=== PATIENT | male | born 1955 | race Caucasian/White ===

== ENCOUNTER 2021-11-22 20:54 | Observation (INO) ==
[2021-11-22] MEDS ORDERED: SODIUM CHLORIDE 0.9% 1000ML 1,000 ML IV STA (21:41)
--- NOTE | 2021-11-22 21:59 | Emergency Department Note ---
Impression & Plan Leukocytosis, Choledocholithiasis ED Provider Note INFORMANT: Patient ED PROVIDER(S): Ivan Arias MD CHIEF COMPLAINT: Abdominal pain PLAN: Disposition: Admitted Condition: Good Outpatient prescription management: none Referral: None patient presented to the emergency department MEDICAL DECISION MAKING: Because of referral from an outside facility in consultation without any general surgery. The patient was examined and had some tenderness but declined analgesia. He was given IV Mefoxin given the findings on CT as well as his leukocytosis. Labs here revealed a leukocytosis albeit better. His LFTs and lipase were unremarkable. Chemistry panel was negative as well. His twelve- lead ECG did not reveal any significant abnormalities. I did consult with general surgery, Dano Cain PA-C. Patient was evaluated in the ER. He will be admitted under Dr. Islas. Ultrasound imaging did raise some concerns for cholecystitis. Official read pending. Triage Nursing notes reviewed and agree them. Vital Signs: reviewed and remarkable for no significant abnormalities Differential diagnosis: Biliary pathology, appendicitis, infections, diverticulitis, UTI, obstruction, mesenteric ischemia, aortic pathology, inflammatory bowel disease, renal colic, PUD, pancreatitis,hernia, volvulus, constipation, as well as other pathologies. Diagnostics interpreted by me: ECG: Twelve-lead ECG reveals a normal sinus rhythm at 85 bpm. Left axis deviation. No ST elevation or depression. No PACs or PVCs. Cardiac Monitoring: Cardiac monitoring ordered by me: The patient was placed on continuous cardiac monitoring and observed. It revealed a normal sinus rhythm at 66 beats per minute without ectopy or evidence of dysrhythmia. Imaging studies: Ultrasound as above HPI: The patient is a 66 year old male who presents to the Emergency Room with complaints of abdominal pain that was in the epigastrium and below the rib cage. This started yesterday and is persisting. The patient went to [facility] and had a work-up done. There was a large stone found in the gallbladder neck with a white count of 19,000. Troponin negative. LFTs unremarkable. They did not have ultrasound available. No surgical capabilities were available there. They did contact [facility] general surgery who recommended transfer to the ER here. The patient also notes the following associated symptoms, nausea and vomiting. The patient has taken no medication at home forrelieving factors. Current pain is rated as 4/10. Pt denies LOC, headache, fevers, chills, diaphoresis, visual changes, neck pain, chest pain, breathing difficulties, back pain, melena, hematochezia, urinary symptoms, numbness, weakness, lymphadenopathy, rash, or other complaints. ROS: See above HPI for pertinent positives & negatives. A total of 10 systems reviewed and were otherwise negative. PAST MEDICAL HISTORY:See Below , diabetes PAST SURGICAL HISTORY:See Below, FAMILY HISTORY:See Below SOCIAL HISTORY:See Below, daily alcohol HOME MEDICATIONS:See Below ALLERGIES:See Below VITALS:See Below PHYSICAL EXAMINATION: GENERAL: Awake, alert, well-appearing, in no distress HENT: Normocephalic, atraumatic. Oropharynx unremarkable. EYES: Normal conjunctiva. Sclera non-icteric. NECK: Inspection normal. Non-tender. Supple. No nuchal rigidity. FROM. No masses. RESPIRATORY: Clear to auscultation. No wheezes. No rales. Normal respiratory effort. CARDIAC: Normal rate. Normal rhythm. No murmurs. No rubs. Extremities warm and well perfused. Pulses equal. No JVD. GI: Soft, non-distended. Epigastric tenderness to palpation. No rebound or guarding. No masses. RECTAL: Deferred. MUSCULOSKELETAL: Atraumatic. Chest examination reveals no tenderness. The back is symmetrical on inspection without obvious abnormality. There is no CVA tenderness to palpation. No joint edema. LOWER EXTREMITIES: Calves are equal size bilaterally and non-tender. No edema. No discoloration. NEURO: Normal sensorium. No sensory or motor deficits noted. SKIN: No rash or jaundice noted. Ivan Arias MD Past Med/Surg History Social History Smoking Status: Never smoker Preferred Language: Georgian Feels Safe at Home: Yes Allergies Allergies Allergy/AdvReac Type Severity Reaction Status Date / Time No Known Allergies Allergy Unverified 11/22/21 23:04 Home Meds Home Medications Medication Instructions Recorded Confirmed Nutraveiw 1 tab PO DAILY 11/22/21 11/22/21 cholecalciferol (vitamin D3) 25 0 mcg PO Q OTHER DAY 11/22/21 11/22/21 mcg (1,000 unit) capsule (Vitamin D3) magnesium oxide 400 mg PO Q OTHER DAY 11/22/21 11/22/21 metformin 500 mg tablet 250 mg PO BID 11/22/21 11/22/21 omega-3 fatty acids 1,000 mg PO 2XWK 11/22/21 11/22/21 prednisolone acetate 1 % eye 1 drp OPHTHALMIC (EYE) QID 11/22/21 11/22/21 drops,suspension simvastatin 20 mg tablet 20 mg PO HS 11/22/21 11/22/21 vitamin B complex 1 tab PO Q OTHER DAY 11/22/21 11/22/21 Results & Data (ED) Vital Signs Vital Signs - 24 hr 11/22/21 20:57 11/22/21 21:59 11/22/21 22:02 Temperature 37.4 C Temperature Source Temporal Artery Scan Pulse Rate 103 H 84 Pulse Rate [Finger] 90 Respiratory Rate 12 18 18 Respiratory Effort / Characteristics Non-Labored Spontaneous Respiratory Depth Normal Respiratory Pattern Regular Blood Pressure 141/76 H Blood Pressure [Right Arm] 164/86 H Blood Pressure Mean 97 Blood Pressure Mean [Right Arm] 112 Pulse Oximetry 96 95 96 Oxygen Delivery Method Room Air Room Air Room Air Sepsis Recent Fever Within 48 Hours No Sepsis New/Unexplained Change in Mental Status No Sepsis Action Taken by Nursing No Action Required 11/22/21 22:59 11/23/21 02:52 Temperature Temperature Source Pulse Rate Pulse Rate [Finger] 75 66 Respiratory Rate 18 18 Respiratory Effort / Characteristics Respiratory Depth Respiratory Pattern Blood Pressure Blood Pressure [Right Arm] 159/81 H 150/69 H Blood Pressure Mean Blood Pressure Mean [Right Arm] 107 96 Pulse Oximetry 98 98 Oxygen Delivery Method Room Air Room Air Sepsis Recent Fever Within 48 Hours Sepsis New/Unexplained Change in Mental Status Sepsis Action Taken by Nursing Laboratory Data Result diagrams: 11/22/21 22:00 11/22/21 22:00 Lab Results 11/22/21 11/22/21 11/23/21 Range/Units 22:00 22:00 00:45 WBC 13.89 H (4.8-10.8) K/uL RBC 4.69 L (4.7-6.1) M/uL Hgb 15.1 (14.0-18.0) g/dL Hct 43.6 (42-52) % MCV 93.0 (80-100) fL MCH 32.2 (25-34) pg MCHC 34.6 (32-36) g/dL RDW Std Deviation 43.6 (36.4-46.3) fL RDW Coeff of Miguel 12.8 (11.5-14.5) % Plt Count 342 (130-400) K/uL MPV 10.2 (7.4-10.4) fL Immature Gran % (Auto) 0.4 % Neut % (Auto) 78.4 % Lymph % (Auto) 11.4 % [place] % (Auto) 9.6 % Eos % (Auto) 0.1 % Baso % (Auto) 0.1 % Neut # (Auto) 10.87 H (1.4-6.5) K/uL Lymph # (Auto) 1.59 (1.2-3.4) K/uL [place] # (Auto) 1.34 H (0.11-0.59) K/uL Eos # (Auto) 0.01 (0-0.5) K/uL Baso # (Auto) 0.02 (0-0.2) K/uL Immature Gran # (Auto) 0.06 H (0.00-0.02) K/uL Sodium 136 (136-145) mmol/L Potassium 3.7 (3.5-5.1) mmol/L Chloride 100 (98-107) mmol/L Carbon Dioxide 26 (21-32) mmol/L Anion Gap 10 (3-11) BUN 10 (6-23) mg/dl Creatinine 0.67 (0.6-1.4) mg/dl Est Cr Clr Drug Dosing 109.9 ml/min Est GFR ( Amer) 116.9 ml/min Est GFR (Non-Af Amer) 100.8 ml/min BUN/Creatinine Ratio 14.9 (10-20) Glucose 173 H (70-99(Fasting)) mg/dl Calcium 9.4 (8.5-10.1) mg/dl Total Bilirubin 0.8 (0.2-1.0) mg/dl AST 17 (13-39) U/L ALT 15 (7-52) U/L Alkaline Phosphatase 57 (34-104) U/L Total Protein 7.1 (6.0-8.3) gm/dl Albumin 4.2 (3.4-5.0) gm/dl Globulin 2.9 (2.5-4.0) gm/dl Albumin/Globulin Ratio 1.4 (0.9-2) Lipase 21 (11-82) U/L SARS-CoV-2, RNA, NAAT NEGATIVE (NEGATIVE) Administered Medications Sodium Chloride (Nss 1000ml) 1,000 mls @ 125 mls/hr IV .Q8H STA Stop: 11/23/21 05:40 Last Admin: 11/22/21 22:08 Dose: 125 mls/hr Documented by: [id number] Discontinued Medications Cefoxitin Sodium (Mefoxin) 2,000 mg in 60 mls @ 100 mls/hr IV NOW STA Stop: 11/22/21 23:54 Last Infusion: 11/23/21 00:47 Dose: 0 mls/hr Documented by: [id number] Admin: 11/23/21 00:11 Dose: 100 mls/hr Documented by: [id number] Discharge Plan Visit Data Chief Complaint: Referred by Doctor Stated Complaint: refer'd from fabrizio jimenez, gallbladder surgery, ED Provider: Ivan Arias Discharge Problem: Leukocytosis, Choledocholithiasis Forms Stand Alone Forms: My [facility] Prescriptions Prescriptions: No Action metformin 500 mg tablet 250 mg PO BID RF: 0 prednisolone acetate 1 % drops,suspension 1 drp ophthalmic (eye) QID RF: 0 simvastatin 20 mg tablet 20 mg PO HS RF: 0 vitamin B complex Tablet 1 tab PO Q OTHER DAY RF: 0 cholecalciferol (vitamin D3) [Vitamin D3] 25 mcg (1,000 unit) Capsule 0 mcg PO Q OTHER DAY RF: 0 Nutraveiw 1 tab PO DAILY RF: 0 Fish Oil Capsule 1,000 mg PO 2XWK RF: 0 magnesium oxide 400 mg magnesium Tablet 400 mg PO Q OTHER DAY RF: 0 Referrals Referrals: PCP,NO [Physician] -
[2021-11-22 22:17] LABS: Basophils # (auto) 0.02 K/uL (0-0.2); Basophils % (auto) 0.1 %; Eosinophils # (auto) 0.01 K/uL (0-0.5); Eosinophils % (auto) 0.1 %; Hematocrit (blood only) 43.6 % (42-52); Hemoglobin 15.1 g/dL (14.0-18.0); Immature Granulocytes # (auto) 0.06 K/uL (0.00-0.02); Immature Granulocytes % (auto) 0.4 %; Lymphocytes # (auto) 1.59 K/uL (1.2-3.4); Lymphocytes % (auto) 11.4 %; Mean Corpuscular Hemoglobin 32.2 pg (25-34); Mean Corpuscular Hgb Conc 34.6 g/dL (32-36); Mean Platelet Volume 10.2 fL (7.4-10.4); Monocytes # (auto) 1.34 K/uL (0.11-0.59); Monocytes % (auto) 9.6 %; Neutrophils # (auto) 10.87 K/uL (1.4-6.5); Neutrophils % (auto) 78.4 %; Platelet Count 342 K/uL (130-400); RDW Coefficient of Variation 12.8 % (11.5-14.5); RDW Standard Deviation 43.6 fL (36.4-46.3); Red Blood Count 4.69 M/uL (4.7-6.1); White Blood Count 13.89 K/uL (4.8-10.8)
[2021-11-22 22:44] LABS: Albumin Globulin Ratio 1.4 (0.9-2); Albumin Level 4.2 gm/dl (3.4-5.0); BUN Creatinine Ratio 14.9 (10-20); Bilirubin,Total 0.8 mg/dl (0.2-1.0); Calcium 9.4 mg/dl (8.5-10.1); Creatinine Clr Calc Pharmacy 109.9 ml/min; Est GFR (African American) 116.9 ml/min; Est GFR (Non-African American) 100.8 ml/min; Globulin 2.9 gm/dl (2.5-4.0); Potassium 3.7 mmol/L (3.5-5.1); Total Protein 7.1 gm/dl (6.0-8.3)
[2021-11-22] MEDS ORDERED: cefOXitin 2,000 MG/60 ML BAG IV STA (23:19)
--- NOTE | 2021-11-23 00:26 | History & Physical Report ---
Date of Service November 23, 2021 Assessment & Plan (1) Cholelithiasis: Plan: Due to the patient's clinical presentation and imaging we admit him to the hospital and proceed as follows: Analgesia will be provided Antiemetics will be provided We will implement n.p.o. status We will provide hydration IV fluids We will maintain the patient on antibiotics. He is already received Mefoxin in the emergency department We will tenably plan on a cholecystectomy. I discussed with the patient a laparoscopic, possible open cholecystectomy and discussed the risks, benefits, and expected postoperative course. He wishes to proceed. The patient is already had an EKG as noted He has had a chest x-ray at [facility] that did not show any evidence of pneumonia A Covid test has been ordered and will follow for the results of this Additional recommendations be forthcoming based on the formal read of patient's ultrasound here at [facility] as well as his clinical course as it unfolds We will use SCDs for DVT prevention. No chemical means of use due to planned surgery He will be a level 1 full code History of Present Illness Chief Complaint: Abdominal pain Primary Care Provider: Jimmie Nichols This is a 66-year-old male who was in his usual state of health until approximately 1 day ago the patient developed some postprandial pain that was located primarily in his upper abdomen. He notes that the pain was in the epigastric and right upper quadrant and he felt it was merely indigestion. He had associated nausea vomiting but denies any fever shakes or chills. He did not note any radiation of the pain. He did not report any additional modifying factors of his pain. He notes that the pain subsided throughout most of the night which prompted him to seek care at [facility]. Of note, the patient reports never having any prior abdominal surgeries. At [facility] the patient did have a chest x-ray that showed no evidence of pneumonia. He also underwent a CT scan of the abdomen and pelvis that showed cholelithiasis. On this study the gallbladder is noted be mildly distended. There is also an echodensity that appeared to represent a stone in the neck of the gallbladder and a smaller stone in the neck of the fundus of the gallbladder. There was no definite pericholecystic fluid on this study. While at [facility] the patient did have labs as well. Chemistry profile showed sodium was 132 and his potassium was normal. His BUN and creatinine were noted to be normal. There were no elevation noted of patient's bilirubin, transaminases, alkaline phosphatase, or lipase. A CBC did show his white blood cell count was elevated at 19.4. His hemoglobin, hematocrit, and platelet count were all noted to be normal. At [facility] emergency department patient had labs and imaging which independent reviewed. He did have a gallbladder ultrasound that was not formally read by radiology department but it did appear as though the patient did have Elsie lithiasis. Labs including CBC were white blood cell count was noted be 13.8. Hemoglobin, hematocrit, platelet count were all within normal range. Chemistry profile showed sodium, potassium, BUN, and creatinine were all within the normal range. He did not have any elevation of his biliru bin, transaminases, alkaline phosphatase, or lipase. A Covid test was ordered and is noted to be pending. He did have an EKG that showed normal sinus rhythm without changes indicative of acute ischemia. I did question the patient on his activities of daily living and he says he leads a very active lifestyle. He oftentimes performs strenuous yard work and with these activities he does not get any chest pain or shortness of breath. He does report history of smoking for approximately 20 years up to 1 pack cigarettes per day but quit this habit in 1996. He said that his father did suffer a heart attack in his 70s. Concerning additional medical problems the patient says that he has prediabetes and denies any other significant medical problems. Notes that his only surgery was a previous eye surgery. At the time of my interview the patient was resting comfortably in bed in no distress Allergies Allergy/AdvReac Type Severity Reaction Status Date / Time No Known Allergies Allergy Unverified 11/22/21 23:04 Home Medications Medication Instructions Recorded Confirmed Type Nutraveiw 1 tab PO DAILY 11/22/21 11/22/21 History cholecalciferol (vitamin D3) 25 0 mcg PO Q OTHER DAY 11/22/21 11/22/21 History mcg (1,000 unit) capsule (Vitamin D3) magnesium oxide 400 mg PO Q OTHER DAY 11/22/21 11/22/21 History metformin 500 mg tablet 250 mg PO BID 11/22/21 11/22/21 History omega-3 fatty acids 1,000 mg PO 2XWK 11/22/21 11/22/21 History prednisolone acetate 1 % eye 1 drp OPHTHALMIC (EYE) QID 11/22/21 11/22/21 History drops,suspension simvastatin 20 mg tablet 20 mg PO HS 11/22/21 11/22/21 History vitamin B complex 1 tab PO Q OTHER DAY 11/22/21 11/22/21 History Past Med/Surg History Social History Smoking Status: Former smoker Hx Alcohol Use: Yes Alcohol type: beer Hx Substance Use: No Preferred Language: Trinidadian Communication Ability: Effective Commission Sales Associate Required: No Beliefs That Will Affect Care: None Current Living Situation: Spouse Other Information That Helps Us Care for You: No Feels Safe at Home: Yes Safety Concerns: Feels Safe At This Time Assistive Devices: Glasses Review of Systems Constitutional: no fever and no chills Eyes: no diplopia Ear, Nose, Mouth, Throat: no ear pain Respiratory: no cough and no dyspnea Cardiovascular: no chest pain Gastrointestinal: + abdominal pain, + nausea and + vomiting Genitourinary: no dysuria Musculoskeletal: no back pain Integumentary: no rash Neurologic: no localized weakness Physical Exam Constitutional: well developed and well nourished; no acute distress Eyes: + anicteric sclerae; no conjunctival abnormality ENMT: Ears: no hearing impairment Neck: trachea midline Respiratory: normal respiratory effort; no respiratory distress and no labored breathing Cardiovascular: Rate/Rhythm: regular rate and regular rhythm Gastrointestinal (Abdomen): Abdomen is soft, nondistended, there is tenderness noted with palpation in the right upper quadrant. There is no rebound tenderness or guarding Musculoskeletal: No calf tenderness Skin: no rashes Neurologic: moves all extremities Psychiatric: A+Ox3, euthymic affect Results & Data Results & Data ([facility]) Vital Signs (Past 12 Hours) Vital Signs Temp Pulse Pulse Resp BP BP Pulse Ox 11/22/21 22:59 75 18 159/81 H 98 11/22/21 22:02 90 18 164/86 H 96 11/22/21 21:59 84 18 95 11/22/21 20:57 37.4 C 103 H 12 141/76 H 96 Supervising Physician Co-Signing Physician Notes I personally saw and evaluated the patient with Rodriguez Cain PA-C and agree with the assessment and plan. 66-year-old male with acute cholecystitis Ultrasound images and results personally viewed by me Admit to surgery Start IV antibiotics, keep n.p.o. IV fluids Pain control as needed We will plan on taking to the operating room tomorrow for laparoscopic cholecystectomy, possible open, possible intraoperative cholangiogram PG Care Time/CCT Total # of Minutes Spent Total Time Spent with Patient: Total time spent is greater than 50% in coordination of care (as documented) at patient's floor/unit and/or counseling patient: Coding Level of Care Code 37414 Initial Inpt Care Lvl 3 Diagnoses Cholelithiasis K80.20
[2021-11-23] MEDS ORDERED: ACETAMINOPHEN 1,000 MG/100 ML VIAL IV PRN (03:43)
[2021-11-23] MEDS ORDERED: MoRPHine SULFATE 4 MG/ML 1 ML CARP\\VIAL IV PRN (03:43)
[2021-11-23] MEDS ORDERED: ONDANSETRON INJ 2 MG/ML 2 ML VIAL IV PRN ×2 (03:43→10:03)
[2021-11-23] MEDS: LACTATED RINGER'S 1,000 ML IV SCH ×2 (04:02→17:31)
[2021-11-23] MEDS: cefOXitin 2,000 MG in DEXTROSE 5% 50 ML IV SCH ×2 (05:30→12:56)
[2021-11-23] MEDS: INSULIN HUMAN REGULAR SC SCH ×4 (06:01→21:06)
--- NOTE | 2021-11-23 06:34 | Surgery Progress Note ---
Date of Service November 23, 2021 Assessment & Plan (1) Cholelithiasis: Plan: Patient has been admitted to the hospital, proceeding as follows Continue analgesics Continue antiemetics Continue n.p.o. status Continue IV fluid for hydration while n.p.o. Continue antibiotics. Cefoxitin has been initiated Plans are in place for patient undergo a cholecystectomy later this morning with Dr. Islas Additional recommendations be forthcoming based on his operative findings and clinical course as it unfolds SCDs only for DVT prevention, no chemical means due to planned surgery Patient be a level 1 full code Admission and Anticipated Discharge Date Admission Date: November 23, 2021 Supervising Physician Co-Signing Physician Notes I personally saw and evaluated the patient with Rodriguez Cain PA-C and agree with the assessment and plan. 66-year-old male with acute cholecystitis Continue IV antibiotics Keep n.p.o. Plan on laparoscopic cholecystectomy, possible open, possible intraoperative cholangiogram today Consent was obtained, risks discussed including bleeding, infection, bile leak, ductal injury Subjective Patient is resting comfortably in bed. Since admission he has not had exacerbation of his abdominal pain. He denies any nausea vomiting since admission. He denies any fevers, shakes, chills since admission. Physical Exam Gastrointestinal (Abdomen): At the present time the patient's abdomen is soft, nontender, nondistended Results & Data ([facility]) Vital Signs (Past 12 Hours) Vital Signs Temp Pulse Pulse Resp BP BP Pulse Ox 11/23/21 03:30 36.9 C 64 16 162/70 H 98 11/23/21 02:52 66 18 150/69 H 98 11/22/21 22:59 75 18 159/81 H 98 11/22/21 22:02 90 18 164/86 H 96 11/22/21 21:59 84 18 95 11/22/21 20:57 37.4 C 103 H 12 141/76 H 96 PG Care Time/CCT Total # of Minutes Spent Total Time Spent with Patient: Total time spent is greater than 50% in coordination of care (as documented) at patient's floor/unit and/or counseling patient: Coding Level of Care Code 63030 Subseq Hosp Care Lvl 1 Diagnoses Cholelithiasis K80.20
--- NOTE | 2021-11-23 07:11 | Anesthesiology Consultation ---
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 History Surgery Operation Date: 11/23/21 10:00 Proposed Procedures p Laparoscopic Cholecystectomy - Rex Islas DO Height/Weight Height: 5 ft 9 in Weight: 80.1 kg Allergies Allergy/AdvReac Type Severity Reaction Status Date / Time No Known Allergies Allergy Unverified 11/22/21 23:04 Medications Home Medications Medication Instructions Recorded Confirmed Last Taken Nutraveiw 1 tab PO DAILY 11/22/21 11/22/21 Unknown cholecalciferol (vitamin D3) 25 0 mcg PO Q OTHER DAY 11/22/21 11/22/21 Unknown mcg (1,000 unit) capsule (Vitamin D3) magnesium oxide 400 mg PO Q OTHER DAY 11/22/21 11/22/21 Unknown metformin 500 mg tablet 250 mg PO BID 11/22/21 11/22/21 11/21/21 09:00 omega-3 fatty acids 1,000 mg PO 2XWK 11/22/21 11/22/21 Unknown prednisolone acetate 1 % eye 1 drp OPHTHALMIC (EYE) QID 11/22/21 11/22/21 11/21/21 drops,suspension simvastatin 20 mg tablet 20 mg PO HS 11/22/21 11/22/21 11/19/21 vitamin B complex 1 tab PO Q OTHER DAY 11/22/21 11/22/21 Unknown Active Medications Generic Name Dose Route Start Last Admin Trade Name Freq PRN Reason Stop Dose Admin Lactated Ringer's 1,000 mls @ 75 mls/hr 11/23/21 03:43 11/23/21 04:02 Lr IV 12/23/21 03:42 75 mls/hr .[id number] NIGHAT Administration Cefoxitin Sodium 2,000 mg/ 60 mls @ 100 mls/hr 11/23/21 06:00 11/23/21 06:02 Dextrose IV 12/03/21 05:59 Infused Q6H NIGHAT Infusion Insulin Human Regular 0 units 11/23/21 06:00 11/23/21 06:01 Insulin Human Regular SC 12/23/21 05:59 Not Given Q6H NIGHAT Social History Smoking Status: Former smoker Hx Alcohol Use: Yes Alcohol type: beer alcohol intake frequency: 3 or more drinks per day Hx Substance Use: No Physical Exam Vital Signs Last Vital Signs Temp 98.4 F 11/23/21 03:30 Pulse 64 11/23/21 03:30 Resp 16 11/23/21 03:30 BP 162/70 H 11/23/21 03:30 Pulse Ox 98 11/23/21 03:30 Testing Laboratory Results 11/22/21 22:00 11/22/21 22:00 11/23/21 05:59 POC Glucose 161 H Laboratory Tests 11/23/21 00:45 SARS-CoV-2, RNA, NAAT NEGATIVE Electrocardiogram Date: 11/22/21 Normal sinus rhythm, rate 85 bpm Left axis deviation Abnormal ECG No previous ECGs available
[2021-11-23] MEDS: prednisoLONE acetate 1% OP SUSP 5 ML BTL OP SCH ×4 (07:22→20:38)
[2021-11-23 07:29] LABS: Basophils # (auto) 0.01 K/uL (0-0.2); Basophils % (auto) 0.1 %; Eosinophils # (auto) 0.02 K/uL (0-0.5); Eosinophils % (auto) 0.2 %; Hematocrit (blood only) 40.4 % (42-52); Immature Granulocytes # (auto) 0.02 K/uL (0.00-0.02); Immature Granulocytes % (auto) 0.2 %; Lymphocytes # (auto) 1.82 K/uL (1.2-3.4); Lymphocytes % (auto) 15.8 %; Mean Corpuscular Hemoglobin 32.5 pg (25-34); Mean Corpuscular Hgb Conc 34.7 g/dL (32-36); Mean Corpuscular Volume 93.7 fL (80-100); Mean Platelet Volume 10.3 fL (7.4-10.4); Monocytes # (auto) 1.08 K/uL (0.11-0.59); Monocytes % (auto) 9.4 %; Neutrophils # (auto) 8.55 K/uL (1.4-6.5); Neutrophils % (auto) 74.3 %; Platelet Count 339 K/uL (130-400); RDW Coefficient of Variation 12.7 % (11.5-14.5); RDW Standard Deviation 44.1 fL (36.4-46.3); Red Blood Count 4.31 M/uL (4.7-6.1)
[2021-11-23] MEDS ORDERED: INSULIN HUMAN REGULAR SC SCH (07:30)
[2021-11-23 07:54] LABS: Albumin Globulin Ratio 1.5 (0.9-2); Albumin Level 3.8 gm/dl (3.4-5.0); BUN Creatinine Ratio 11.8 (10-20); Bilirubin,Total 0.9 mg/dl (0.2-1.0); Calcium 8.8 mg/dl (8.5-10.1); Creatinine Clr Calc Pharmacy 96.9 ml/min; Est GFR (Non-African American) 95.7 ml/min; Globulin 2.6 gm/dl (2.5-4.0); Potassium 3.6 mmol/L (3.5-5.1); Total Protein 6.4 gm/dl (6.0-8.3)
[2021-11-23] MEDS ORDERED: DEXAMETHASONE SOD INJ 4 MG/ML VIAL ONE (07:58)
[2021-11-23] MEDS ORDERED: ONDANSETRON INJ 2 MG/ML 2 ML VIAL ONE ×2 (07:58→11:29)
[2021-11-23] MEDS ORDERED: ROCURONIUM BROMIDE 10 MG/ML 5 ML VIAL IV ONE (07:58)
[2021-11-23] MEDS ORDERED: PROPOFOL IV EMULSION 10 MG/ML 20 ML VIAL IV ONE (07:58)
[2021-11-23] MEDS ORDERED: LIDOCAINE 2% 2 ML VIAL/AMP(20MG/ML) INFIL ONE (07:58)
--- NOTE | 2021-11-23 08:38 | Ultrasound Report ---
US gallbladder LIMITED ABDOMEN CLINICAL HISTORY: Stone in neck on outpatient CT. COMPARISON: None. TECHNIQUE: Multiple grayscale and color images of the right upper quadrant of the abdomen. FINDINGS: The study is limited by overlying bowel gas. Pancreas: The imaged portion of the pancreas is within normal limits with no focal mass or peripancre atic fluid collection identified. Liver: The liver is homogeneous in echogenicity There is no evidence for a focal mass. There is no in trahepatic biliary duct dilatation. Gallbladder: The gallbladder is distended with evidence for a stone impacted in the neck of the gallb ladder. There is gallbladder wall thickening measuring 7 mm. Minimal pericholecystic edema is seen. H owever, there was reportedly a negative sonographic Gabriel sign. Common Bile Duct: (CBD): It is normal in size measuring 3 mm. Inferior Vena Cava (IVC): The imaged IVC is patent. Right kidney: There is no evidence for hydronephrosis, calculus or gross renal mass. 2 small cysts ar e present, the largest measuring 2.2 cm. The kidney is normal in size. IMPRESSION: 1. Distended gallbladder with wall thickening and minimal pericholecystic edema. There is a stone imp acted in the neck of the gallbladder. While there was reportedly a negative sonographic Gabriel sign, the findings are suspicious for early acute cholecystitis. ACT 112: Negative or not required by law. Electronically signed by: Guero Ndiaye M.D. 11/23/2021 8:35 AM
[2021-11-23] MEDS ORDERED: BUPIVACAINE/EPINEPHRINE 0.25% 1:200,000 30 ML VIAL ONE (08:47)
[2021-11-23] MEDS ORDERED: ATROPINE SULFATE 0.1 MG/ML 10ML SYR IV PRN (10:03)
[2021-11-23] MEDS ORDERED: ePHEDrine sulfate 50 MG/ML AMP IV PRN (10:03)
[2021-11-23] MEDS ORDERED: fentaNYL citrate 100 MCG/2 ML VIAL IV PRN (10:03)
[2021-11-23] MEDS ORDERED: fentaNYL citrate 100 MCG/2 ML VIAL ONE ×2 (10:09→10:37)
[2021-11-23] MEDS ORDERED: MIDAZOLAM HCL 1 MG/ML 2ML VIAL ONE (10:09)
--- NOTE | 2021-11-23 10:46 | Electrocardiogram Report ---
Test Reason : Blood Pressure : / mmHG Vent. Rate : 085 BPM Atrial Rate : 085 BPM P-R Int : 162 ms QRS Dur : 086 ms QT Int : 374 ms P-R-T Axes : 040 -42 020 degrees QTc Int : 445 ms Normal sinus rhythm Left axis deviation Abnormal ECG No previous ECGs available Confirmed by Tino Alva ([id number]) on 11/23/2021 10:45:55 AM Referred By: REFERRED SELF Confirmed By:Tino Alva
[2021-11-23] MEDS ORDERED: NEOSTIGMINE METHYLSULFATE 1 MG/ML 10ML VIAL ONE (10:52)
[2021-11-23] MEDS ORDERED: PHENYLEPHRINE 100MCG/ML 5ML SYR ONE (10:52)
[2021-11-23] MEDS ORDERED: GLYCOPYRROLATE 0.2 MG/ML VIAL ONE (10:52)
[2021-11-23] MEDS ORDERED: KETOROLAC 30 MG/ML VIAL ONE (11:49)
--- NOTE | 2021-11-23 12:06 | Post Operative Brief Note ---
PG Immediate Post Op with CF Date of Surgery November 23, 2021 Pre & Post Diagnosis Operation Date: 11/23/21 10:00 Pre-Op Diagnosis: Acute Cholecystitis Post-Op Diagnosis: Acute Cholecystitis I identified the patient and participated in the time-out.: Yes Procedure Operation Date: 11/23/21 10:00 Actual Procedures p Laparoscopic Cholecystectomy(Not Applicable) - Rex Islas DO Surgeon Rex Islas DO Campaign Marketing Manager None Estimated Blood Loss 20 Findings See Below Acutely inflamed edematous gallbladder consistent with acute cholecystitis Specimens Specimen Description: A. Gallbladder and contents Anesthesia Type General Complications none Disposition Disposition: Recovery Room
--- NOTE | 2021-11-23 12:08 | Operative Report ---
PG Post Operative Report Pre & Post Diagnosis Operation Date: 11/23/21 10:00 Pre-Op Diagnosis: Acute Cholecystitis Post-Op Diagnosis: Acute Cholecystitis I identified the patient and participated in the time-out.: Yes Procedure Operation Date: 11/23/21 10:00 Actual Procedures p Laparoscopic Cholecystectomy(Not Applicable) - Rex Islas DO Surgeon Rex Islas DO Calibration Specialist None Estimated Blood Loss 20 Findings See Below Acutely inflamed edematous gallbladder consistent with acute cholecystitis Fluids see anesthesia record Specimens Gallbladder to pathology Drains None Anesthesia Type General Complications none Disposition Disposition: Recovery Room Indications 66-year-old male with acute cholecystitis Description of Procedure The patient was brought to the operating room and placed in the supine position with both arms extended. At this time he underwent general endotracheal anesthesia without any problems. He was given appropriate pre-operative antibiotics. His abdomen was prepped and draped in the usual sterile fashion. A timeout was called, the procedure was verified as Laparoscopic cholecystectomy, possible open, possible intra-operative cholangiogram. Surgical, nursing and anesthesia teams agreed and the procedure was begun. After injection of 0.25% Marcaine with epinephrine, a supraumbilical vertical incision was made and carried down to the fascia using S-retractors. The abdominal wall was then elevated with towel clamps and abdomen entered using the Veress needle confirming position using the saline drop test. Pneumoperitoneum was established. 5mm trocar was placed. Laparoscope was introduced. No injury from entry into the abdomen was visualized after inspection of the abdomen. Three further ports were placed under direct visualization. One 11mm in the subxiphoid region and two 5mm in the RUQ. At this time the abdomen was inspected and the gallbladder identified. The gallbladder was acutely inflamed and edematous consistent with acute cholecystitis. The gallbladder fundus was grasped and retracted cephalad. The gallbladder infundibulum was then grasped and retracted laterally. The cystic duct and cystic artery were then identified and skeletonized. The critical view of safety was obtained. They were both then clipped twice proximally and once distally and then divided using scissors. The gallbladder was then taken off of the liver bed using electrocautery and placed in an endocatch bag and removed from the subxiphoid port. The liver bed was then inspected and no bile leak or bleeding was evident. The trocars were then removed under direct visualization and no bleeding was present. The subxiphoid port was then closed using 0-Vicryl using the suture passer. Abdomen was desufflated. The skin was then closed using 4-0 Monocryl in a subcuticular fashion. Surgical glue was applied. Needle and sponge counts were correct x 2. At this time the patient was awoken from anesthesia and extubated having remained stable throughout the entire case. The patient was then transported to PACU in stable condition. I attest to the content of the Intraoperative Record and any orders documented therein. Any exceptions are noted below.
--- NOTE | 2021-11-23 12:34 | Anesthesiology Progress Note ---
Date of Service November 23, 2021 Anesthesia Post Procedure Vital Signs Vital Signs: Temp Pulse Pulse Pulse Resp BP BP 11/23/21 12:15 59 L 22 136/63 11/23/21 12:06 97.2 F L 65 20 140/64 11/23/21 07:32 98.2 F 58 L 16 151/69 H 11/23/21 03:30 98.4 F 64 16 162/70 H 11/23/21 02:52 66 18 150/69 H 11/22/21 22:59 75 18 159/81 H 11/22/21 22:02 90 18 164/86 H 11/22/21 21:59 84 18 11/22/21 20:57 99.3 F 103 H 12 141/76 H Pulse Ox 11/23/21 12:15 95 11/23/21 12:06 97 11/23/21 07:32 96 11/23/21 03:30 98 11/23/21 02:52 98 11/22/21 22:59 98 11/22/21 22:02 96 11/22/21 21:59 95 11/22/21 20:57 96 Transfer of Care Handoff Completed per policy Notes Mental Status: alert / awake / arousable and participated in evaluation Patient Amnestic to Procedure: Yes Nausea / Vomiting: adequately controlled Pain: adequately controlled Airway Patency, RR, SpO2: stable & adequate BP & HR: stable & adequate Hydration State: stable & adequate Anesthetic Complications: no major complications apparent and Pt Satisfied with anesthetic care
[2021-11-23] MEDS ORDERED: Nursing to Pharmacy Communication SCH (14:45)
[2021-11-24] MEDS: LACTATED RINGER'S 1,000 ML IV SCH (06:21)
[2021-11-24] MEDS: prednisoLONE acetate 1% OP SUSP 5 ML BTL OP SCH ×2 (08:37→12:42)
[2021-11-24] MEDS: INSULIN HUMAN REGULAR SC SCH ×2 (08:38→12:38)
--- NOTE | 2021-11-24 09:27 | Surgery Progress Note ---
Date of Service November 24, 2021 Assessment & Plan (1) Cholecystitis, acute: Plan: Doing well postoperative day 1 laparoscopic cholecystectomy He is tolerating a diet without nausea and vomiting and pain controlled as well as afebrile If he tolerates lunch she is okay for discharge and will follow follow-up with me in 2 weeks Admission and Anticipated Discharge Date Admission Date: November 23, 2021 Subjective Patient seen and examined. Tolerating regular diet. Pain controlled. Afebrile. Physical Exam Constitutional: WD/WN, vitals as above Gastrointestinal (Abdomen): Soft, appropriately tender, dressings clean dry and intact Results & Data ([facility]) Vital Signs (Past 12 Hours) Vital Signs Temp Pulse Pulse Resp BP Pulse Ox 11/24/21 07:33 37.0 C 60 16 130/70 93 11/24/21 07:07 37.0 C 76 16 136/70 94 11/24/21 01:45 37.2 C 78 16 143/68 H 95 11/23/21 22:04 37.4 C 62 16 139/79 95 PG Care Time/CCT Total # of Minutes Spent Total Time Spent with Patient: Total time spent is greater than 50% in coordination of care (as documented) at patient's floor/unit and/or counseling patient: Coding Level of Care Code None Diagnoses Cholecystitis, acute K81.0
== END 2021-11-24 13:05 | disposition home or self-care (01) ==
LOC: ED 20:54 → 3W 11-23 00:34 → INTOOBSV 11-23 00:34 → 3W 11-23 04:05
DX: K80.20 Calculus of gallbladder without cholecystitis without obstruction; Z87.891 Personal history of nicotine dependence; Z20.822 Contact with and (suspected) exposure to COVID-19

== ENCOUNTER 2025-02-21 07:14 | Inpatient (IN) ==
--- NOTE | 2025-02-14 13:06 | Anesthesiology Consultation ---
Date of Service February 14, 2025 Assessment & Plan (1) Encounter for pre-operative examination: - check BSG am DOS. - Per pcts on 02/14/25: No known infectious disease contacts, current infectious disease symptoms in past 10 days or COVID positive test result in the past 30 days. Chart Review Chart Review: Acceptable Risk for Surgery and Patient NOT seen in Pre Admission Testing History Surgery Operation Date: 02/21/25 07:15 Proposed Procedures p Laparoscopic Possible Open Low Anterior Colon Resection - Luis Kerr DO Height/Weight Height: 5 ft 9 in Weight: 78.018 kg Allergies Allergy/AdvReac Type Severity Reaction Status Date / Time No Known Allergies Allergy Verified 02/14/25 12:17 Medications Home Medications Medication Instructions Recorded Confirmed Last Taken Nutraveiw 1 tab PO 3XWK 11/22/21 02/14/25 01/21/25 metformin 500 mg tablet 500 mg PO BID 11/22/21 02/14/25 01/22/25 omega-3 fatty acids 1,000 mg PO QPM 11/22/21 02/14/25 01/21/25 vitamin B complex 1 tab PO 3XWK 11/22/21 02/14/25 01/21/25 atorvastatin 20 mg tablet 20 mg PO QAM 01/10/25 02/14/25 01/22/25 cholecalciferol (vitamin D3) 50 50 mcg PO QAM 01/10/25 02/14/25 01/21/25 mcg (2,000 unit) capsule (Vitamin D3) magnesium citrate 367 mg PO QAM 01/10/25 02/14/25 01/21/25 Past Medical History Medical History (Updated 02/14/25 @ 13:02 by Mamie Gonzalez PA-C) Adenocarcinoma of sigmoid colon Chronic back pain well managed - hx of seeing [facility] Degenerative disc disease Diabetes mellitus, type 2 NIDDM Hyperlipidemia 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 Past Family History Family History Mother Cancer Diabetes Father Colorectal cancer Stroke Diabetes Heart disease Other No family history of adverse response to anesthesia Past Surgical History Surgical History (Updated 02/14/25 @ 13:02 by Mamie Gonzalez PA-C) H/O colonoscopy (01/23/25) H/O eye surgery (2005) "tumor-like mass behind the right eye and affecting the optic nerve" benign tumor, treated at [facility] [place] ~2005 H/O wisdom tooth extraction x1 tooth with sedation Hx laparoscopic cholecystectomy (11/23/21) Laparoscopic Cholecystectomy - Rex Islas, DO 11/23/2021 S/P epidural steroid injection Social History Smoking Status: Former smoker Do You Dip or Chew Tobacco: No Smoking End Date: quit 1996 Hx Alcohol Use: Yes Alcohol type: beer alcohol intake frequency: 0-2 drinks per day Alcohol Intake Frequency Comment: 2-3 cans per day Hx Substance Use: No substance use type: does not use Lab Results Anesthesia Preop Results Results Anesthesia Widget: WBC 5.84 K/ul (4.8-10.8) 02/02/25 Hgb 14.6 g/dl (14.0-18.0) 02/02/25 Hct 43.8 % (42.0-52.0) 02/02/25 Plt 287 K/uL (130-400) 02/02/25 Na 136 mmol/L (136-145) 02/02/25 K 4.0 mmol/L (3.5-5.1) 02/02/25 Cl 102 mmol/L (98-107) 02/02/25 CO2 28 mmol/L (21-32) 02/02/25 BUN 8 mg/dl (6-23) 02/02/25 Creat 0.77 mg/dl (0.6-1.4) 02/02/25 Glucose Level 123 mg/dl (70-99(Fasting)) H 02/02/25 PT 10.7 Seconds (9.0-12.0) 02/02/25 INR 1.0 (0.9-1.1) 02/02/25 Testing Electrocardiogram Date: 02/08/25 Sinus bradycardia, rate 59 bpm Left axis deviation Incomplete RBBB Other Testing Chest CT 02/02/25 1. No evidence for metastatic disease within the chest. 2. Several small right lower lobe pulmonary nodules which are unchanged since CT of November 22, 2021. These are benign given stability. Abdomen pelvis CT 01/26/25 1. At least two subcentimeter tiny nodules seen in the posterior basal segment of right lower lobe, one is pleural based. These are too small to characterize. 2. Few simple right renal cortical cysts. 3. Small hiatus hernia noted. A small fat containing diaphragmatic hernia noted on left side. 4. Multiple diverticulae are seen arising from descending and sigmoid colon without any evidence of diverticulitis. 5. Bilateral fat containing inguinal hernia seen, larger on left side. 6. Imaged spine shows degenerative changes.
[2025-02-21] MEDS: LR 15ML/HR IV SCH (07:52)
[2025-02-21] MEDS: HEPARIN SOD 5,000 UNIT/0.5 ML VIAL SC SCH (07:53)
[2025-02-21] MEDS ORDERED: ONDANSETRON INJ 2 MG/ML 2 ML VIAL ONE (08:04)
[2025-02-21] MEDS ORDERED: DEXAMETHASONE SOD INJ 4 MG/ML VIAL ONE (08:04)
[2025-02-21] MEDS ORDERED: PROPOFOL IV EMULSION 10 MG/ML 20 ML VIAL IV ONE (08:04)
[2025-02-21] MEDS ORDERED: fentaNYL citrate PF 100 MCG/2 ML VIAL ONE (08:05)
[2025-02-21] MEDS ORDERED: MIDAZOLAM HCL 1 MG/ML 2ML VIAL ONE (08:05)
[2025-02-21] MEDS ORDERED: SUGAMMADEX SODIUM 200 MG/2 ML VIAL IV ONE ×2 (08:05→11:48)
[2025-02-21] MEDS ORDERED: ROCURONIUM BROMIDE 10 MG/ML 5 ML VIAL IV ONE ×2 (08:08→09:19)
--- NOTE | 2025-02-21 08:12 | History & Physical Bridge Note ---
Date of Service February 21, 2025 History & Physical Bridge Note I have examined the patient, reviewed the History & Physical and in the interval since the performance of the History & Physical I have noted the following changes of clinical significance: no changes noted
[2025-02-21] MEDS ORDERED: PROMETHAZINE HCL 6.25 MG in SODIUM CHLORIDE 0.9% 50 ML IV PRN (08:23)
[2025-02-21] MEDS ORDERED: ONDANSETRON INJ 2 MG/ML 2 ML VIAL IV PRN ×2 (08:23→21:17)
[2025-02-21] MEDS ORDERED: FLUMAZENIL 0.1 MG/1 ML 10 ML VIAL IV PRN (08:23)
[2025-02-21] MEDS ORDERED: ePHEDrine sulfate 50 MG/ML AMP IV PRN (08:23)
[2025-02-21] MEDS ORDERED: ATROPINE SULFATE 0.1 MG/ML 10ML SYR IV PRN (08:23)
[2025-02-21] MEDS ORDERED: NALOXONE HCL 0.4 MG/1 ML VIAL/CARP IV PRN (08:23)
[2025-02-21] MEDS: ceFAZolin 2000MG 2,000 MG/15 ML SYR IV SCH (09:20)
[2025-02-21] MEDS ORDERED: HYDROmorphone INJ 2 MG/ML SYR/VIAL ONE (09:47)
[2025-02-21] MEDS ORDERED: SODIUM CHLORIDE 0.9% 100 ML IV PRN (10:27)
[2025-02-21] MEDS: ceFAZolin 2,000 MG/15 ML IV PUSH IV ONE (10:36)
[2025-02-21] MEDS: BUPIVACAINE/EPINEPHRINE 0.5% MPF 1:200,000 30 ML VIAL ONE (11:47)
[2025-02-21] MEDS: fentaNYL citrate PF 100 MCG/2 ML VIAL IV PRN (12:14)
[2025-02-21] MEDS: HYDROmorphone INJ 1 MG/ML SYRINGE IV PRN (12:34)
[2025-02-21 13:04] LABS: Hemoglobin 13.2 g/dl (14.0-18.0); Mean Corpuscular Hemoglobin 31.6 pg (25.0-34.0); Mean Corpuscular Hgb Conc 33.8 g/dL (32.0-36.0); Mean Corpuscular Volume 93.3 fL (80.0-100.0); Mean Platelet Volume 10.7 fL (9.4-12.4); Platelet Count 266 K/uL (130-400); RDW Coefficient of Variation 12.8 % (11.5-14.5); RDW Standard Deviation 43.6 fL (36.4-46.3); Red Blood Count 4.18 M/uL (4.70-6.10); White Blood Count 13.46 K/ul (4.8-10.8)
--- NOTE | 2025-02-21 13:04 | Cancer Operative Report ---
Post Operative Report Pre & Post Diagnosis Operation Date: 02/21/25 08:45 Pre-Op Diagnosis: Adenocarinoma of Sigmoid Colon Post-Op Diagnosis: Adenocarinoma of Sigmoid Colon I identified the patient and participated in the time-out.: Yes Procedure Operation Date: 02/21/25 08:45 Actual Procedures p Laparoscopic Low Anterior Colon Resection(Not Applicable) - Luis Kerr DO Surgeon Luis Kerr DO [employer] Consultant parth Toussaint Estimated Blood Loss 1,000 Findings Consistent with Post-Op Diagnosis Specimens rectosigmoid colon Description of Procedure After informed consent was obtained the patient was taken to the operating room and placed in supine position. After successful intubation a Dumont catheter was placed sterilely and the patient was placed into a low lithotomy position. Both arms were tucked. The abdomen was then shaved and sterilely prepped and draped in usual fashion. I began with a supraumbilical incision. This was carried down through the soft tissues and cautery. Anterior fascia was opened using cautery and two #0 Vicryl stay sutures were placed. Peritoneum was entered using blunt finger penetration. A finger sweep was performed. A 12 mm Dorado trocar was placed and the abdomen was insufflated to 18 mmHg. Laparoscope was inserted and the abdomen was examined 360 degrees. A right lower quadrant 12 mm port a right mid abdominal 5 mm port and eventually a left lower quadrant 5 mm port would all be placed under direct visualization. The patient was placed in a Trendelenburg position and slightly airplaned to the right. I was able to readily find the tattoo festus on the distal sigmoid colon. I began by using the harmonic scalpel to take down the white line of Toldt. We carried this distally down past the peritoneal reflection and proximally up to almost the splenic flexure. This fully mobilized the left colon. I was able to identify the left ureter to keep it out of harm's way. I found a spot well distal to the tattoo festus and created a small window in the mesentery. A JEREMY purple cartridge stapler was then used to transect the rectosigmoid in this region. I then began using the harmonic scalpel to take down the mesentery staying as low as possible to incorporate as many lymph nodes as possible. I did get into some significant bleeding from the inferior mesenteric vessels. I was able to regain control and placed hemoclips which did control the bleeding but not until we lost around 750 cc from this portion of the procedure. All this blood was immediately suctioned and irrigated. I continued to use the LigaSure as well as harmonic scalpel to come up the mesentery until we were proximal to the tattoo festus by at least 7 to 8 cm. Next we extended the left lower quadrant trocar site including the fascia. I was then able to deliver the stapled end of the rectosigmoid out through this. We toweled off the incision and continue to deliver the colon including the mass out onto the anterior abdominal wall. I clamped the bowel proximal to the tattoo using a bowel clamp and divided it using a George scissor. It was passed off to the back table. I would eventually open this and look at it to ensure good margins prior to sending it to pathology. I was happy with the margins. We continued by estimating the lumen size to be 28 mm. 2-0 silk was used to hand sew a pursestring. The anvil was placed into the end and the pursestring used to secure it. This was then dunked back into the abdominal cavity. The fascia of the left lower quadrant incision was closed using #1 PDS in running fashion. At this point we changed our gloves. I re-insufflated the abdomen and placed the laparoscope. My physician clinical assistant began by placing sizers into the rectal stump followed by the handle of the EEA stapler. We were able to deploy the spike anterior to the staple line. I connected the anvil to the handle secured them together and fired creating an end-to-end circular anastomosis. Both donuts were intact. We did inflate the anastomosis under water using a colonoscope. It was completely airtight. A final irrigation was performed. There was adequate hemostasis at the completion of the procedure. A 10 flat Ashwin-Gonzalez drain was placed in the pelvis and brought out through the right lower quadrant trocar site. It was secured to the skin using 2-0 nylon. The fascia of the camera port was closed using 0 Vicryl in [id number] fashion. All the wounds were irrigated and closed using skin suzanne. The larger incision was closed over quarter inch [place]. Silver dressings were applied. The patient was awakened extubated and transferred to recovery in stable condition. My physician clinical assistant was present for the entire case was instrumental in running the camera assisting with exposure assisting with the anastomosis wound closure and dressing placement. Colon Resection Operation performed with curative intent: Yes Extent of colon and vascular resection: Sigmoid resection inferior mesenteric I attest to the content of the Intraoperative Record and any orders documented therein. Any exceptions are noted below.
--- NOTE | 2025-02-21 13:38 | Anesthesiology Progress Note ---
Date of Service February 21, 2025 Anesthesia Post Procedure Vital Signs Vital Signs: Temp Pulse Resp BP BP Pulse Ox O2 Del Method 02/21/25 13:20 79 13 157/74 H 94 Room Air 02/21/25 13:10 79 12 144/68 H 95 Oxymask 02/21/25 13:00 79 18 162/71 H 96 Oxymask 02/21/25 13:00 84 19 164/76 H 96 Oxymask 02/21/25 12:50 88 14 152/76 H 95 Oxymask 02/21/25 12:40 77 18 165/76 H 97 Oxymask 02/21/25 12:30 83 17 151/86 H 99 Oxymask 02/21/25 12:20 79 15 140/66 100 Oxymask 02/21/25 12:10 79 18 152/70 H 100 Oxymask 02/21/25 12:04 36 C L 81 16 159/77 H 100 Oxymask 02/21/25 07:36 36.4 C L 64 20 175/86 H 97 Room Air 02/21/25 07:35 63 20 175/86 H 97 Room Air O2 Flow Rate 02/21/25 13:20 02/21/25 13:10 4 02/21/25 13:00 4 02/21/25 13:00 4 02/21/25 12:50 4 02/21/25 12:40 4 02/21/25 12:30 8 02/21/25 12:20 8 02/21/25 12:10 8 02/21/25 12:04 8 02/21/25 07:36 02/21/25 07:35 Pain Intensity Abdomen: Pain Intensity: 7 Transfer of Care Handoff Completed per policy Notes Mental Status: alert / awake / arousable Patient Amnestic to Procedure: Yes Nausea / Vomiting: adequately controlled Pain: adequately controlled Airway Patency, RR, SpO2: stable & adequate BP & HR: stable & adequate Hydration State: stable & adequate Anesthetic Complications: no major complications apparent
[2025-02-21] MEDS ORDERED: MoRPHine SULFATE 4 MG/ML 1 ML CARP\\VIAL IV PRN (13:58)
[2025-02-21] MEDS: LACTATED RINGER'S 1,000 ML IV SCH (14:39)
[2025-02-21] MEDS: ACETAMINOPHEN 1,000 MG/100 ML VIAL IV SCH (14:46)
[2025-02-21] MEDS: cefOXitin 2,000 MG in DEXTROSE 5 % MINI-B 50 ML IV SCH (15:53)
[2025-02-21] MEDS: oxyCODONE HCL IR 5 MG TAB (IMMEDIATE RELEASE) PO PRN (16:48)
[2025-02-21] MEDS: MoRPHine SULFATE 2 MG/ML CARP IV PRN (19:36)
[2025-02-22 07:58] LABS: Basophils # (auto) 0.03 K/uL (0.00-0.20); Basophils % (auto) 0.3 %; Hematocrit (blood only) 33.1 % (42.0-52.0); Hemoglobin 11.2 g/dl (14.0-18.0); Immature Granulocytes # (auto) 0.03 K/uL (0.01-0.20); Immature Granulocytes % (auto) 0.3 %; Lymphocytes # (auto) 1.19 K/uL (1.20-3.40); Lymphocytes % (auto) 11.2 %; Mean Corpuscular Hemoglobin 30.4 pg (25.0-34.0); Mean Corpuscular Hgb Conc 33.8 g/dL (32.0-36.0); Mean Corpuscular Volume 89.9 fL (80.0-100.0); Mean Platelet Volume 10.5 fL (9.4-12.4); Monocytes # (auto) 1.16 K/uL (0.11-0.59); Monocytes % (auto) 10.9 %; Neutrophils # (auto) 8.26 K/uL (1.40-6.50); Neutrophils % (auto) 77.3 %; Platelet Count 231 K/uL (130-400); RDW Coefficient of Variation 12.9 % (11.5-14.5); RDW Standard Deviation 42.2 fL (36.4-46.3); Red Blood Count 3.68 M/uL (4.70-6.10); White Blood Count 10.67 K/ul (4.8-10.8)
[2025-02-22 08:20] LABS: BUN Creatinine Ratio 9.7 (10-20); Calcium 8.3 mg/dl (8.6-10.3); Creatinine Clr Calc Pharmacy 112.4 ml/min; Potassium 4.2 mmol/L (3.5-5.1)
[2025-02-22] MEDS: oxyCODONE HCL IR 5 MG TAB (IMMEDIATE RELEASE) PO PRN (11:15)
[2025-02-22] MEDS ORDERED: HYDROmorphone INJ 0.5 MG/0.5 ML SYR IV PRN (12:37)
[2025-02-22] MEDS ORDERED: HYDROmorphone INJ 1 MG/ML SYRINGE IV PRN (12:37)
--- NOTE | 2025-02-22 13:26 | Surgery Progress Note ---
Date of Service February 22, 2025 Assessment & Plan (1) Adenocarcinoma of sigmoid colon: Plan: POD#1 laparoscopic sigmoid colectomy WBC 10.6, Hbg 11.2. Vitals stable Some pain in lower abdomen, manageable with prn pain meds OUMAR drain sangenous, keep in place Will advance to clears today, instructed him to take it easy Making good urine, will d/c garcia catheter Encouraged IS and OOB as able Admission and Anticipated Discharge Date Admission Date: February 21, 2025 Subjective patient doing as expected. feels some gas rumblings and gas pains. no flatus/bm noted. a little bit of hiccups/burping but no nausea/vomiting. Physical Exam Physical Exam: awake/alert, no distress Respiratory: normal respiratory effort Gastrointestinal (Abdomen): Inspection/Auscultation: + abdominal surgical incision (surgical dressings in place, shadowing outlined) and + abdominal surgical drain present (sangeounous drainage noted, 220cc last 24 hr); abdomen not distended Percussion/Palpation: + abdomen tender (expected francisco incisional discomfort to palpation ) and abdomen soft Results & Data Vital Signs (Past 12 Hours) Vital Signs Temp Pulse Resp BP BP Pulse Ox O2 Del Method 02/22/25 11:13 98.2 F 90 16 165/66 H 94 Room Air 02/22/25 07:24 99.0 F 87 18 166/64 H 95 Room Air 02/22/25 05:42 167/65 H 02/22/25 03:50 98.2 F 90 19 176/68 H 95 Room Air PG Care Time/CCT Total # of Minutes Spent Total Time Spent with Patient: Total time spent is greater than 50% in coordination of care (as documented) at patient's floor/unit and/or counseling patient: Coding Level of Care Code 55474 Post Operative Follow-Up Diagnoses Adenocarcinoma of sigmoid colon C18.7
[2025-02-22] MEDS: ACETAMINOPHEN 500 MG TAB PO SCH (15:39)
[2025-02-23] MEDS: ACETAMINOPHEN 1,000 MG/100 ML VIAL IV SCH (00:01)
--- NOTE | 2025-02-23 09:17 | Surgery Progress Note ---
Date of Service February 23, 2025 Assessment & Plan (1) History of colon resection: Plan: Doing well for postoperative day #2. H&H still pending. If this is stabilized we will remove his left internal jugular catheter. Because of the intraoperative bleeding I do want to hold Lovenox at least 1 more day. We will initiate tomorrow as long as his H&H is stable. Will Resendiz to the full liquids. Awaiting full return of bowel function. Dr. Owens covering for the weekend if any concerns or questions. Admission and Anticipated Discharge Date Admission Date: February 21, 2025 Subjective Patient seen. Looks significantly better than yesterday. He is up ambulating. Passing large amount of gas. Minimal discomfort no nausea. Physical Exam Physical Exam: Alert no acute distress Abdomen has expected tenderness. OUMAR drain slowing down but still sanguinous output. Results & Data Vital Signs (Past 12 Hours) Vital Signs Temp Pulse Resp BP BP Pulse Ox O2 Del Method 02/23/25 07:25 36.9 C 83 16 183/86 H 175/83 H 95 Room Air PG Care Time/CCT Total # of Minutes Spent Total Time Spent with Patient: Total time spent is greater than 50% in coordination of care (as documented) at patient's floor/unit and/or counseling patient: Coding Level of Care Code 60296 Post Operative Follow-Up Diagnoses History of colon resection Z90.49
[2025-02-23 09:26] LABS: Basophils # (auto) 0.02 K/uL (0.00-0.20); Basophils % (auto) 0.2 %; Eosinophils # (auto) 0.13 K/uL (0.00-0.50); Eosinophils % (auto) 1.4 %; Hemoglobin 12.2 g/dl (14.0-18.0); Immature Granulocytes # (auto) 0.05 K/uL (0.01-0.20); Immature Granulocytes % (auto) 0.6 %; Lymphocytes # (auto) 0.91 K/uL (1.20-3.40); Mean Corpuscular Hemoglobin 30.5 pg (25.0-34.0); Mean Corpuscular Volume 92.5 fL (80.0-100.0); Mean Platelet Volume 10.7 fL (9.4-12.4); Monocytes # (auto) 0.61 K/uL (0.11-0.59); Monocytes % (auto) 6.7 %; Neutrophils # (auto) 7.36 K/uL (1.40-6.50); Neutrophils % (auto) 81.1 %; Platelet Count 245 K/uL (130-400); RDW Standard Deviation 43.6 fL (36.4-46.3); White Blood Count 9.08 K/ul (4.8-10.8)
[2025-02-23 09:41] LABS: BUN Creatinine Ratio 6.9 (10-20); Creatinine Clr Calc Pharmacy 120.2 ml/min; Potassium 3.9 mmol/L (3.5-5.1)
[2025-02-23] MEDS: hydrALAZINE HCL 20 MG/ML VIAL IV PRN (10:44)
[2025-02-24 07:29] LABS: Basophils # (auto) 0.02 K/uL (0.00-0.20); Basophils % (auto) 0.3 %; Eosinophils # (auto) 0.27 K/uL (0.00-0.50); Eosinophils % (auto) 3.9 %; Hematocrit (blood only) 34.7 % (42.0-52.0); Hemoglobin 11.7 g/dl (14.0-18.0); Immature Granulocytes # (auto) 0.03 K/uL (0.01-0.20); Immature Granulocytes % (auto) 0.4 %; Lymphocytes # (auto) 1.09 K/uL (1.20-3.40); Lymphocytes % (auto) 15.6 %; Mean Corpuscular Hemoglobin 30.6 pg (25.0-34.0); Mean Corpuscular Hgb Conc 33.7 g/dL (32.0-36.0); Mean Corpuscular Volume 90.8 fL (80.0-100.0); Mean Platelet Volume 10.8 fL (9.4-12.4); Monocytes # (auto) 0.65 K/uL (0.11-0.59); Monocytes % (auto) 9.3 %; Neutrophils # (auto) 4.91 K/uL (1.40-6.50); Neutrophils % (auto) 70.5 %; Platelet Count 209 K/uL (130-400); RDW Coefficient of Variation 12.8 % (11.5-14.5); Red Blood Count 3.82 M/uL (4.70-6.10); White Blood Count 6.97 K/ul (4.8-10.8)
[2025-02-24 07:53] LABS: Calcium 8.8 mg/dl (8.6-10.3); Creatinine Clr Calc Pharmacy 139.4 ml/min; Potassium 3.7 mmol/L (3.5-5.1)
--- NOTE | 2025-02-24 09:29 | Surgery Progress Note ---
Date of Service February 24, 2025 Assessment & Plan (1) History of colon resection: Plan: Patient is POD #3 s/p laparoscopic sigmoid colectomy - Doing well at this time, VSS, and hemodynamically stable. -Hgb 11.7 this morning, will plan to initiate Lovenox for chemical DVT ppx today -Still waiting return of bowel function, possible diet advancement later today to low fiber and see how he does -OUMAR drain to remain in place for now -Continue ambulation and OOB while awake Admission and Anticipated Discharge Date Admission Date: February 21, 2025 Supervising Physician Co-Signing Physician Notes Patient seen examined, labs reviewed, agree with above. POD #3 laparoscopic LAR, doing well. Passing gas, tolerated full liquids. Abdomen soft, dressing clean dry and intact, drain less output and more serosanguineous today. Labs unremarkable. Will start on Lovenox, advance to low fiber diet. Potential discharge in the next 24 to 48 hours. Subjective Patient seen and evaluated this morning, doing well. States he does have some cramping gas pains that come and go however pain is controlled with current regime. Passing gas however no BM yet Tolerating full liquids without issues of nausea or vomiting VSS Physical Exam Constitutional: WD/WN, vitals as above Respiratory: normal respiratory effort, lungs clear to auscultation Cardiovascular: RRR, no murmur, no edema Gastrointestinal (Abdomen): Abdomen soft, nondistended, +appropriate TTP over surgical sites OUMAR drain in place, 50cc output recorded Skin: no rashes, warm and dry Results & Data Vital Signs (Past 12 Hours) Vital Signs Temp Pulse Pulse Resp BP Pulse Ox O2 Del Method 02/24/25 07:44 36.7 C 82 18 182/71 H 96 Room Air 02/23/25 23:48 160/68 H 02/23/25 22:49 73 187/73 H PG Care Time/CCT Total # of Minutes Spent Total Time Spent with Patient: Total time spent is greater than 50% in coordination of care (as documented) at patient's floor/unit and/or counseling patient: Coding [place] [address] Post Operative Follow-Up Patient Type Established Medical Decision Making Straight Forward Diagnoses History of colon resection Z90.49
[2025-02-24] MEDS: ENOXAPARIN INJ 40 MG/0.4 ML SYR SQ SCH (12:44)
[2025-02-24 19:49] VITALS: PULSE 82
[2025-02-25 05:58] LABS: Basophils # (auto) 0.02 K/uL (0.00-0.20); Basophils % (auto) 0.4 %; Eosinophils # (auto) 0.25 K/uL (0.00-0.50); Hematocrit (blood only) 34.1 % (42.0-52.0); Hemoglobin 11.4 g/dl (14.0-18.0); Immature Granulocytes # (auto) 0.04 K/uL (0.01-0.20); Immature Granulocytes % (auto) 0.8 %; Lymphocytes # (auto) 1.45 K/uL (1.20-3.40); Lymphocytes % (auto) 28.9 %; Mean Corpuscular Hemoglobin 30.4 pg (25.0-34.0); Mean Corpuscular Hgb Conc 33.4 g/dL (32.0-36.0); Mean Corpuscular Volume 90.9 fL (80.0-100.0); Monocytes # (auto) 0.54 K/uL (0.11-0.59); Monocytes % (auto) 10.8 %; Neutrophils # (auto) 2.71 K/uL (1.40-6.50); Neutrophils % (auto) 54.1 %; Platelet Count 235 K/uL (130-400); Red Blood Count 3.75 M/uL (4.70-6.10); White Blood Count 5.01 K/ul (4.8-10.8)
[2025-02-25 06:20] LABS: BUN Creatinine Ratio 9.6 (10-20); Calcium 8.6 mg/dl (8.6-10.3); Creatinine Clr Calc Pharmacy 134.1 ml/min; Potassium 3.4 mmol/L (3.5-5.1)
[2025-02-25 07:11] VITALS: BP 155/81; RESP 18; TEMP 97.9; O2SAT 98
--- NOTE | 2025-02-25 08:53 | Surgery Progress Note ---
Date of Service February 25, 2025 Assessment & Plan (1) History of colon resection: Plan: Patient is POD #4 s/p laparoscopic sigmoid colectomy - Doing well at this time, VSS, and hemodynamically stable. -Pain currently well-controlled -Patient was able to tolerate a low fiber diet yesterday. Passing gas and did have 2 bowel movements -Plan for hopeful discharge later today vs tomorrow morning depending on how patient feels after breakfast. Will plan to discontinue OUMAR drain and [place] drain prior to patient being discharged Admission and Anticipated Discharge Date Admission Date: February 21, 2025 Supervising Physician Co-Signing Physician Notes Patient seen examined, labs reviewed, agree with above. POD #4 laparoscopic LAR, doing well. Passing gas, 2 liquid BMs yesterday, tolerating low fiber. Abdomen soft, dressing clean dry and intact, drain less output and more serosanguineous today. Labs unremarkable. DC OUMAR, DC [place], discharged home on low fiber diet. Follow-up in [address] Kerr. Subjective Patient seen and evaluated this morning, doing well States previous gas pain has subsided and he did have 2 bowel movements Was able to tolerate a low fiber diet yesterday without any issues of worsening abdominal pain, nausea or vomiting OUMAR drain remains in place, minimal serosanguineous output (75cc recorded). Surgical dressing was removed this morning at bedside and incisions without any signs of infection Afebrile and vital signs stable Physical Exam Constitutional: WD/WN, vitals as above Respiratory: normal respiratory effort, lungs clear to auscultation Cardiovascular: RRR, no murmur, no edema Gastrointestinal (Abdomen): Abdomen soft, nondistended, appropriate tenderness palpation over surgical sites. Surgical dressing was taken down this morning. Incisions are clean, dry, intact. [place] in place. [place] in place to the largest incision - minimal drainage appreciated. OUMAR with minimal serosanguineous output Skin: no rashes, warm and dry Results & Data Vital Signs (Past 12 Hours) Vital Signs Temp Pulse Resp BP Pulse Ox O2 Del Method 02/25/25 07:09 36.6 C 82 18 155/81 H 98 Room Air PG Care Time/CCT Total # of Minutes Spent Total Time Spent with Patient: Total time spent is greater than 50% in coordination of care (as documented) at patient's floor/unit and/or counseling patient: [place] [address] Post Operative Follow-Up Patient Type Established Medical Decision Making Straight Forward Diagnoses History of colon resection Z90.49
--- NOTE | 2025-02-25 14:27 | Discharge Summary ---
Date of Service February 25, 2025 Admission HPI Per Admitting Provider 02/05/2025: Donald is here to discuss a newly diagnosed rectosigmoid cancer. He was having some blood in his stool for quite some time and underwent his first colonoscopy recently. Unfortunately they found an adenocarcinoma on biopsy. He does have a family history and believes his father had colon cancer in his 40s. He denies any other symptoms. 02/21/2025: History & Physical Bridge Note I have examined the patient, reviewed the History & Physical and in the interval since the performance of the History & Physical I have noted the following changes of clinical significance: no changes noted Admission Exam Per Admitting Provider Physical Exam Constitutional WD/WN, vitals as above no acute distress and not ill appearing Eyes PERRL, conjunctivae normal, anicteric sclerae EOM intact bilaterally ENMT external ear and nose normal, oropharynx normal Ears: no hearing impairment Neck trachea midline, no thyromegaly Respiratory normal respiratory effort; no respiratory distress and does not use accessory muscles Cardiovascular Rate/Rhythm: regular rate and regular rhythm Gastrointestinal (Abdomen) normal bowel sounds, soft, nontender, no hepatosplenomegaly Skin no rashes, warm and dry Psychiatric Orientation: alert, oriented x 3 and cooperative Principal Diagnosis 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 Incisions are clean, dry, intact. [place] in place. [place] in place to the largest incision - minimal drainage appreciated. OUMAR with minimal serosanguineous output Skin no rashes, warm and dry Discharge Data Allergies Allergy/AdvReac Type Severity Reaction Status Date / Time No Known Allergies Allergy Verified 02/21/25 07:21 Procedures Performed Operation Date: 02/21/25 08:45 Actual Procedures p Laparoscopic Low Anterior Colon Resection(Not Applicable) - Luis Kerr, DO Hospital Course (1) Adenocarcinoma of sigmoid colon: In summary, the patient was seen in the outpatient setting for concerns of adenocarcinoma of the sigmoid colon and underwent a laparoscopic sigmoid resection on 02/21/[address] Kerr (please see full operative report for procedure details). Postoperatively, the patient was admitted under the surgical service to the medical surgical floor where he remained throughout his hospital course. Postoperatively, the patient was able to slowly advance his diet once he had full return of bowel function and was able to tolerate a low- fiber diet without any reported issues prior to discharge. The patient's pain was controlled with multimodal pain regimen. He did receive preoperative ant ibiotic coverage, however postoperatively did not require any additional antibiotic coverage and he remained afebrile and his WBC remained within normal limits. Throughout his stay his OUMAR drain remained in place and prior to discharge there was minimal serosanguineous output and the OUMAR drain was discontinued. The patient's incisions were clean, dry, and intact with holly in place and there were no overlying signs of infection present. The patient did have the [place] drain in place at the largest incision on the left side of his abdomen, which was also removed prior to discharge. The patient remained hemodynamically stable throughout his hospital course and did receive Lovenox for chemical DVT prophylaxis. On POD #4 the patient was tolerating a diet, was having bowel movements, and pain was controlled. He was ultimately found medically stable for discharge home. The patient was provided with postoperative instructions and he will follow-up with Dr. Kerr in our outpatient clinic in approximately 2 weeks time. (2) History of colon resection: Total Time Total Time Spent Total Time Spent (In Minutes): >30 minutes Discharge Plan Discharge Items Patient Disposition: Home - Self-Care Reason For Visit: Adenocarinoma of Sigmoid Colon Discharge Diagnosis: sigmoidectomy Activity: Per Instructions section Lifting: No more than 10 pounds Bathing Comment: may shower; no soaking in bath tubs/hot tubs/pools x 2 weeks Exercise/Sports: Wait until after follow-up appointment Driving/Machine Use: wait at least 1 week; no driving while on narcotics for pain Non-emergency contact: Primary Care Provider and Surgeon Call non-emergency contact if: you have any medication questions, your symptoms worsen, your pain is not controlled, you have a fever, your temperature is above 101.5, your wound has increased redness, your wound has increased drainage and your wound pain has increased Follow-up/Referrals: Luis Kerr, [Surgeon] - (please call to schedule follow up in the office in 2 weeks ) Luis Akhtar, ELENAC [Primary Care Provider] - Diet: Low Fiber Addtl Attending Provider Instructions: SPECIAL CARE INSTRUCTIONS * You have holly in your incisions that will be removed at your follow up appointment. You may change the outer dressings daily and as needed with dry gauze and tape. * Where your surgical drain was removed continue daily dressing changes with gauze and tape until the site has healed and no longer draining any fluid. * You may shower. NO soaking in bath tubs, hot tubs, or pools for 2 weeks * No lifting greater than 10lbs. No strenuous exercise until cleared by surgeon. Light walking is accepted. * No driving while taking narcotic pain medication; wait at least 1 week * No drinking alcohol while taking narcotic pain medication * May use Ibuprofen/Tylenol over the counter for pain. Do not exceed 3grams of Tylenol per 24 hours * Expect some swelling and bruising. * Diet- low fiber diet Call your doctor if: * Temperature above 101 degrees, nausea/vomiting, fever/chills * Pain not relieved by pain medicine ordered * There is increased drainage or redness from any incision * You have any unanswered questions or concerns [phone]. FOLLOW UP VISIT: If not already scheduled, please call the office for a follow-up visit. Office Pending Studies at Discharge: Yes Studies:: surgical pathology Stand-Alone Forms: My [facility] Medications and DC Order Prescriptions: New oxycodone 5 mg tablet 5 mg PO Q6H PRN (Reason: pain) Qty: 15 0RF Rx Instructions: Initial Therapy post surgery Continued metformin 500 mg tablet 500 mg PO BID Rx Instructions: hold for 2 days after cat scan vitamin B complex Tablet 1 tab PO 3XWK Nutraveiw 1 tab PO 3XWK omega-3 fatty acids Capsule 1,000 mg PO QPM atorvastatin 20 mg Tablet 20 mg PO QAM cholecalciferol (vitamin D3) [Vitamin D3] 50 mcg (2,000 unit) Capsule 50 mcg PO QAM magnesium citrate 367 mg PO QAM Discharge Orders: Discharge Order (Routine); Ordered 02/25/25 Ordered By: Marlen Montoya/Other Patient Handouts: Low-Fiber Diet Admission Data Admit Date/Time: 02/21/25 12:13 Attending Provider: Luis Kerr Admit Provider: Luis Kerr Primary Care Provider: Luis Akhtar Other Providers: [facility] Other Interventions: Discharge Summary Assessment (RN) Last Done: 02/25/25 12:09 [place] [address] INP/OBS DISCH >30 MIN Patient Type Established History Problem Focused Exam Problem Focused Medical Decision Making Straight Forward Diagnoses Adenocarcinoma of sigmoid colon C18.7 History of colon resection Z90.49
--- NOTE | 2025-02-27 08:07 | Coding Query ---
Your help is needed for correct coding of this account; please clarify if the patients intraoperative bleeding was: ( ) expected out of the surgery (x ) unexpected complication from the surgery ( )other please specify Thank you Johana MOBLEY
== END 2025-02-25 13:00 | disposition home or self-care (01) | DRG 330 ==
LOC: ASU 07:14 → 3N 12:13